=== PATIENT | male | born 1980 | race Two or more races ===

== ENCOUNTER → 2022-05-24 12:22 | Outpatient (BNVA) | payer OTHER, SELFPAY | PROVIDERS: Visit Provider Physician Assistant | DX: M25.512 Pain in left shoulder (principal) | CPT/HCPCS: 73030; 99204 ==

== ENCOUNTER → 2022-05-31 13:06 | Outpatient (BNVA) | payer OTHER, SELFPAY | PROVIDERS: Visit Provider Physician Assistant | DX: M25.512 Pain in left shoulder (principal) | CPT/HCPCS: 99213 ==

== ENCOUNTER → 2022-06-13 13:55 | Outpatient (BNVA) | payer OTHER, SELFPAY | PROVIDERS: Visit Provider Physician Assistant | DX: M25.512 Pain in left shoulder (principal) | CPT/HCPCS: 99213 ==

== ENCOUNTER → 2022-07-11 15:31 | Outpatient (BNVA) | payer OTHER, SELFPAY | PROVIDERS: Visit Provider Physician Assistant | DX: M25.512 Pain in left shoulder (principal) | CPT/HCPCS: 99213 ==

== ENCOUNTER → 2022-08-01 13:24 | Outpatient (BNVA) | payer OTHER, SELFPAY | PROVIDERS: Visit Provider Physician Assistant | DX: M25.512 Pain in left shoulder (principal) | CPT/HCPCS: 99214 ==

== ENCOUNTER 2022-08-08 18:44 | Outpatient (REF) | payer OTHER, SELFPAY ==
--- NOTE | ~2022-08-08 | MR_ITS ---
EXAMINATION: MR SHOULDER WITHOUT CONTRAST, LEFT CLINICAL INFORMATION: Fall with pain COMPARISON: None. TECHNIQUE: MRI of the shoulder without contrast is performed on a 1.5 [employer] high-field scanner. FINDINGS: ROTATOR CUFF: There is a partial-thickness supraspinatus tendon insertional tear measuring approximately 5 mm in AP dimension involving the bursal surface without a definite full-thickness component. Mild subscapularis tendinopathy. The rotator cuff is otherwise intact. No muscle atrophy or fatty infiltration. BICEPS: Normal. CORACOACROMIAL ARCH: The undersurface of the acromion is flat with no subacromial spur. Minimal acromioclavicular osteoarthritis. LABRUM/CAPSULE: There appears to be an ill-defined undersurface tear of the posterior superior labrum with a 1.2 cm elongated paralabral cyst extending medially toward the spinoglenoid notch demonstrated on coronal image 10. GLENOHUMERAL JOINT/MARROW: Mild marrow edema of the greater tuberosity subjacent to the supraspinatus insertional tear. No significant joint effusion. ADDITIONAL FINDINGS: None. MR/MR shoulder LT wo con IMPRESSION: 1. Small partial-thickness bursal surface tear of the supraspinatus tendon insertion with underlying marrow edema of the greater tuberosity. 2. Mild subscapularis tendinopathy. 3. Probable ill-defined undersurface tear of the posterior superior labrum with a 1.2 cm elongated paralabral cyst extending medially toward the spinoglenoid notch.
== END 2022-08-08 18:45 | disposition home or self-care (01) ==
LOC: HO.MRI 18:44
PROVIDERS: Visit Provider Internal Medicine
DX: M25.512 Pain in left shoulder (principal); R53.1 Weakness
CPT/HCPCS: 73221

== ENCOUNTER → 2022-08-24 14:45 | Outpatient (BNVA) | payer OTHER, SELFPAY | PROVIDERS: Visit Provider Physician Assistant | DX: M25.512 Pain in left shoulder (principal) | CPT/HCPCS: 99213 ==